=== PATIENT | male | born 1980 | race Caucasian/White ===

== ENCOUNTER 2022-01-27 21:46 | Emergency (ER) | payer MEDICAID ==
[~2022-01-27] VITALS: Ht 177.8 cm; Wt 79.4 kg
[2022-01-27] MEDS ORDERED: CEFTRIAXONE 500 MG VIAL ONE (21:58)
[2022-01-27] MEDS ORDERED: DOXYCYCLINE HYCLATE (100 MG) 100 MG TABLET ONE (21:59)
[2022-01-27] MEDS ORDERED: CEFTRIAXONE 500 MG VIAL IM ONE (22:00)
[2022-01-27] MEDS ORDERED: DOXYCYCLINE HYCLATE (100 MG) 100 MG TABLET PO ONE (22:00)
[2022-01-27] MEDS ORDERED: DOXY-326 PO ×2 (22:01→22:10)
--- NOTE | 2022-01-27 22:05 | NUR ---
Patient discharged to home in stable condition. Written and verbal after care instructions given. Patient verbalizes understanding of instruction.
[2022-01-27 22:06] VITALS: BP 140/70
--- NOTE | 2022-01-27 22:06 | NUR ---
URINE COLLECTED AND SENT TO LAB
--- NOTE | 2022-01-27 22:14 | NUR ---
Patient discharged to home in stable condition. Written and verbal after care instructions given. Patient verbalizes understanding of instruction.PT ambulatory with a steady gait
[2022-01-27 22:40] LABS: BILIRUBIN,URINE NEGATIVE (NEGATIVE); COLOR,URINE YELLOW (YELLOW); LEUKOCYTE ESTERASE ,URINE NEGATIVE (NEGATIVE); NITRITE, URINE NEGATIVE (NEGATIVE); PROTEIN,URINE NEGATIVE (NEGATIVE); UGLUCOSE NEGATIVE (NEGATIVE); UROBILINOGEN,URINE 0.2 EU/dL (0.2)
== END 2022-01-27 22:14 | disposition home or self-care (01) ==
LOC: ER 21:56
DX: A64 Unspecified sexually transmitted disease (principal)
CPT/HCPCS: 81003; 87491; 87591; 96372; 99283; J0696